=== PATIENT | male | born 1990 | race American Indian/Alaskan Native ===

== ENCOUNTER 2017-07-22 08:26 | Emergency (ER) | payer OTHER ==
[2017-07-22 09:53] VITALS: BP 132/74
[2017-07-22] MEDS ORDERED: TORADOL IM ONE (11:30)
[2017-07-22 11:32] LABS: Bilirubin,Urine NEG (Negative); Blood,Urine NEG (Negative); Color,Urine Yellow (Yellow); Nitrite,Urine NEG (Negative); Protein,Urine <15 mg/dL mg/dL (Negative); Urobilinogen,Urine < 2.0 mg/dL (<2.0)
--- NOTE | 2017-07-22 11:34 | XRay Report ---
RIGHT RIBS: Trauma, pain Routine views of the rib cage demonstrate normal mineralization with no significant contour abnormalities, fractures or destructive lesions. PA view of the chest demonstrates no underlying cardiopulmonary abnormalities, fluid or pneumothorax. IMPRESSION: Normal right rib series.
--- NOTE | 2017-07-22 11:47 | Emergency Department Report ---
ED Back Pain/Injury HPI - General Chief Complaint: Pain General Stated Complaint: LEFT FLANK PAIN Time Seen by Provider: 07/22/17 11:17 Source: patient, RN notes reviewed Mode of arrival: Ambulatory Limitations: No Limitations - History of Present Illness MD Complaint: back injury, other (when playing soccer got hit in left side) -: Sudden, days(s) Similar Symptoms Previously: No Place: home Severity: mild Quality: sharp Consistency: intermittent Improves With: immobilization Worsens With: movement Context: other (sports) Associated Symptoms: denies other symptoms Treatments Prior to Arrival: NSAIDS - Related Data Previous Rx's Medication Instructions Recorded Last Taken Type Naproxen [Naprosyn] 500 mg PO BID PRN #20 tablet 07/22/17 Unknown Rx traMADol [Ultram] 50 mg PO Q6HR PRN #12 tablet 07/22/17 Unknown Rx Allergies Allergy/AdvReac Type Severity Reaction Status Date / Time No Known Allergies Allergy Unverified 07/22/17 09:53 ED Review of Systems ROS: Stated complaint: LEFT FLANK PAIN Other details as noted in HPI Comment: All other systems reviewed and negative Gastrointestinal: denies: abdominal pain, nausea, vomiting, diarrhea, constipation, hematemesis, melena, other Genitourinary: denies: urgency, dysuria, frequency, hematuria, discharge, testicular pain, testicular mass Musculoskeletal: as per HPI, back pain (side l pain; much higher than flank in this patient) ED Past Medical Hx - Past Medical History Medical history: no medical history Surgical history: no surgical history Psychiatric history: no pertinent history Family history: no significant family history - Social History Smoking Status: Never Smoker Alcohol use: rarely Drug use: none ED Back Pain Physical Exam - Exam General: Vital signs noted. No distress. Alert and acting appropriately. Pt is 6 ft 3 in pain is not flank it is lower rib cage and on the side happened while playing soccer he is in room playing on ipad no pain w deep inspiration lungs cta no rub normal heart tones vss nad no fever not guarding Back/Abdomen: No Abdominal Tenderness, No Perithoracic Tenderness, No Perilumbar Tenderness, No Sacroiliac Tenderness, No Flank Tenderness, No Straight Leg Raise Pain Neuro: Yes Normal Sensation, Yes Normal DTR's, Yes Normal Gait, No Motor Weakness ED Course Vital Signs 07/22/17 07/22/17 09:44 11:41 Temperature 98.5 F Pulse Rate 74 Respiratory 20 18 Rate Blood Pressure 132/74 Blood Pressure 132/74 [Left] O2 Sat by Pulse 100 Oximetry - Reevaluation(s) Reevaluation #1: 07/22/17 11:45 medicated for pain for motrin not working at home Ed Back Pain Tests - Tests Tests: Normal X Rays ED Medical Decision Making - Radiology Data Radiology results: report reviewed, image reviewed - Medical Decision Making pain too high to be that of flank no dysuria no hematuria no other s/s of stone no cough or fever or other s/s of urti sp incident while playing soccer xray neg for fx - Differential Diagnosis ro rib fx Critical care attestation.: If time is entered above; I have spent that time in minutes in the direct care of this critically ill patient, excluding procedure time. ED Disposition Clinical Impression: Contusion of rib on left side Disposition: DC-01 TO HOME OR SELFCARE Is pt being admited?: No Does the pt Need Aspirin: No Condition: Stable Instructions: Contusion in Adults (ED) Additional Instructions: rest warm compresses may help provide comfort deep breaths every hour; use splint to guard area if it hurts no contact sports until pain is gone meds as ordered today if not better in 48 hours see doctor listed below Referrals: NETO AUSTIN MD [Staff Physician] - 3-5 Days Time of Disposition: 11:47
== END 2017-07-22 12:09 | disposition home or self-care (01) ==
LOC: ED 08:26
DX: S20.212A Contusion of left front wall of thorax, initial encounter (principal); X58.XXXA Exposure to other specified factors, initial encounter; Y93.66 Activity, soccer; Y92.89 Other specified places as the place of occurrence of the external cause; Y99.8 Other external cause status
CPT/HCPCS: 71100; 81001; 96372; 99284; J1885